=== PATIENT | female | born 1960 | race Caucasian/White ===

== ENCOUNTER 2018-06-17 15:25 | Outpatient (REF) | payer BC, SELFPAY ==
[2018-06-17 22:20] LABS: Cholesterol 259 mg/dL (50-200); HDL Cholesterol 87 mg/dL (40-60); LDL CHOLESTEROL 153 mg/dL (<100); Triglyceride 48 mg/dL (30-150); Vitamin B12 416 pg/mL (193-986)
== END 2018-06-17 15:45 ==
LOC: NCHCN 15:25
PROVIDERS: PCP Nurse Practitioner; Visit Provider Nurse Practitioner
DX: E78.5 Hyperlipidemia, unspecified (principal); E53.8 Deficiency of other specified B group vitamins
CPT/HCPCS: 80061; 83721; 82607

== ENCOUNTER 2018-12-17 01:10 | Outpatient (CLI) | payer OTHER, SELFPAY ==
--- NOTE | 2018-12-17 07:57 | DI.MAMMO_ITS ---
SYMPTOM/DIAGNOSIS: SCREENING Z12.31 BILATERAL SCREENING MAMMOGRAM: Mammograms were interpreted according to the usual protocol including computer analysis with CAD system, tomosynthesis and C view imaging. Comparison is made with exams from 2013 through 2018. The breasts are composed of heterogeneously dense fibroglandular tissue, breast density category C. No suspicious masses or suspicious microcalcifications are seen. There has been no significant change. IMPRESSION: Category 1, negative mammogram. Yearly screening mammography is recommended. Breast density category C. SA ASSESSMENT OF FINDINGS: Negative. Category 1. Patient will receive a letter notifying them of these results. Bi-RADS category C. The breasts are heterogeneously dense, which may obscure small masses.
== END 2018-12-17 01:30 ==
PROVIDERS: PCP Nurse Practitioner; Visit Provider Family Medicine
DX: Z12.31 Encounter for screening mammogram for malignant neoplasm of breast (principal)
CPT/HCPCS: 77063; 77067

== ENCOUNTER 2019-09-26 20:32 | Outpatient (REF) | payer OTHER, SELFPAY ==
[2019-09-26 21:11] LABS: Vitamin D 25 Total 31.5 ng/ml (30-100)
[2019-09-26 21:16] LABS: Calculated LDL 188 mg/dL (<100); Cholesterol 283 mg/dL (<200); HDL Cholesterol 88 mg/dL (40-60); TSH (W/Ref FT4) 0.67 uIU/mL (0.36-3.74); Triglyceride 35 mg/dL (<150); Vitamin B12 1716 pg/mL (193-986)
[2019-09-28 11:04] LABS: Hepatitis C Ab w Rflx HCV PCR Negative (Negative)
[2019-09-28 14:15] LABS: HIV-1/2 Ag & Ab Screen Reactive (Negative)
[2019-10-04 16:17] LABS: HIV 1 Ab Diff Negative
[2019-10-04 16:18] LABS: HIV 2 Ab Diff Negative
== END 2019-09-26 20:52 ==
LOC: NCHCN 20:32
PROVIDERS: PCP Nurse Practitioner; Visit Provider Nurse Practitioner Family
DX: Z00.00 Encounter for general adult medical examination without abnormal findings (principal); E04.9 Nontoxic goiter, unspecified; E53.8 Deficiency of other specified B group vitamins; E78.5 Hyperlipidemia, unspecified; M54.9 Dorsalgia, unspecified; M85.80 Other specified disorders of bone density and structure, unspecified site; Z11.4 Encounter for screening for human immunodeficiency virus [HIV]; Z11.59 Encounter for screening for other viral diseases
CPT/HCPCS: 80061; 82306; 86701; 86702; 86803; 87389; 82607; 84443

== ENCOUNTER 2019-12-29 02:07 | Outpatient (CLI) | payer OTHER, SELFPAY ==
--- NOTE | 2019-12-29 | DI.DEXA_ITS ---
EXAM: XR DEXA BONE DENSITY W/WO LIBAN CLINICAL HISTORY: OSTEOPENIA, M85.80 TECHNIQUE: COMPARISON: Comparison examination is 04/01/2017. FINDINGS: Lateral Spine Image: Unremarkable. No compression deformities identified. Left hip: Total T-Score: -1.9. This compares with -1.8 on the prior examination. Total Z-Score: -0.9 T- and Z-scores: Findings consistent with osteopenia and increased fracture risk. Lumbar Spine: Total T-Score: -2.6. This compares with a total T-score of -2.4 on the prior examination. Total Z-Score: -1.2 T- and Z-scores: Findings consistent with osteoporosis and high fracture risk. IMPRESSION: Osteoporosis in the lumbar spine.
--- NOTE | 2019-12-29 15:13 | DI.MAMMO_ITS ---
EXAM: MG MAMMO SCREENING CLINICAL HISTORY: SCREENING,Z12.31,H/O PREVIOUS ABNL TECHNIQUE: Bilateral full field digital CC and MLO mammographic images were obtained with 3D tomosyn thesis and utilizing computer aided detection (CAD). COMPARISON: Available for comparison. FINDINGS: Masses/Architectural Distortion: There is a new partially obscured nodule in the posterior inferior l eft breast on the mediolateral oblique view. Microcalcifications: No suspicious pleomorphic-type are seen. Skin Thickening/Nipple Retraction: None. IMPRESSION: 1. New left breast nodule. 2. Further evaluation should be obtained with a spot MLO view and a left breast ultrasound. BI-RADS Category 0 - Assessment Incomplete: Need additional imaging evaluation Breast Density - Category C - Heterogeneously dense The mammogram demonstrates the patient's breast tissue is dense. Dense breast tissue is very common a nd is not abnormal but dense breast tissue can make it harder to find cancer on a mammogram. Also, de nse breast tissue may increase their breast cancer risk. This [facility] was provided to the patient to raise their awareness. Use this report when you speak wi th the patient about their risks for breast cancer, which includes their family history. At that time , you may recommend for more screening tests (Ultrasound or MRI) as they might be useful based on the ir risk. A negative radiographic report should not delay biopsy if a dominant or clinically suspicious mass is present. Up to ten percent of cancers are not identified on mammography. A negative report may reinforce clinical impression. Adenosis and dense breasts may obscure an underlying neoplasm. False positive reports average 6 to 10%. Patient will receive a letter notifying them of these results.
== END 2019-12-29 02:27 ==
PROVIDERS: PCP Nurse Practitioner Family; Visit Provider Nurse Practitioner Family
DX: Z12.31 Encounter for screening mammogram for malignant neoplasm of breast (principal); N63.20 Unspecified lump in the left breast, unspecified quadrant; R92.2 Inconclusive mammogram; M81.0 Age-related osteoporosis without current pathological fracture
CPT/HCPCS: 77063; 77067; 77080

== ENCOUNTER 2020-01-05 02:50 | Outpatient (CLI) | payer OTHER, SELFPAY ==
--- NOTE | 2020-01-05 | DI.MAMMO_ITS ---
EXAM: MG MAMMO SCREEN CALL BACK UNI CLINICAL HISTORY: F/U ABNL MAMMO,NEW PARTIALLY OBSCURED NODULE POSTERIOR INF LT BREAST TECHNIQUE: Spot compression views including C- View and tomographic imaging were performed. COMPARISON: 2010 through the recent exam 29 December 2019. FINDINGS: No suspicious masses or suspicious microcalcifications are seen. No persistent abnormality is seen on the additional views performed. The findings are consistent wit h overlying fibroglandular tissue. There has been no significant change from prior exams. IMPRESSION: BI-RADS Category 1, Negative Yearly screening mammography is recommended. Breast Density - Category C - Heterogeneously dense
== END 2020-01-05 03:10 ==
PROVIDERS: PCP Nurse Practitioner Family; Visit Provider Nurse Practitioner Family
DX: R92.2 Inconclusive mammogram (principal); R92.8 Other abnormal and inconclusive findings on diagnostic imaging of breast
CPT/HCPCS: 77063; 77067

== ENCOUNTER 2021-03-08 10:54 | Outpatient (CLI) | payer OTHER, SELFPAY ==
--- NOTE | 2021-03-08 09:47 | DI.RAD_ITS ---
Exam(s) XR KNEE RT 3V AP,LAT,EJ EXAM: XR KNEE RT 3V AP,LAT,EJ CLINICAL HISTORY: R knee pain. TECHNIQUE: 2D digital imaging was performed of the right knee. Four views obtained. AP, lateral and PA tunnel views were obtained. COMPARISON: No previous for comparison. FINDINGS: BONES: No acute fracture is present. No bony destructive lesion is seen. There are findings of a prio r ACL repair. JOINTS: The knee is normally aligned. Periarticular spurring is present. There is a small joint eff usion. Chondrocalcinosis is seen in the femoral tibial joint. SOFT TISSUE: Atherosclerosis. IMPRESSION: 1. Degenerative changes of the right knee. 2. Prior ACL repair. DATA REPOSITORY: RADIATION DOSE DELIVERED:
== END 2021-03-08 10:55 | disposition home or self-care (01) ==
LOC: DIORS 10:55
PROVIDERS: PCP Nurse Practitioner Family; Visit Provider Physician Assistant
DX: M25.561 Pain in right knee (principal)
CPT/HCPCS: 73562

== ENCOUNTER 2021-03-11 11:30 | Outpatient (REF) | payer OTHER, SELFPAY ==
--- NOTE | 2021-03-11 09:15 | PAPFT_PTH ---
PATIENT: Rebecca Rob LOC: [facility]#:[id number] AGE/SX: 60/F ROOM: RE03/11/[address]: Carol Zarate : 1960 BED: DIS: 03/11/2021 SPEC #: [id number] RECD: 03/11/21 18:38 STATUS: RICK RERadha #: [id number] WILLIAN: 03/11/21 09:[address]: Carol Zarate DEPT: [facility] Cytology RECD BY: Mila Méndez Tissues: 1 - CX/ENDOCX FOR PAP SMEARS Procedures: PAP THIN PREP/UVM Screening HPV DNA PROBE Comments: [id number]
[2021-03-11 16:09] LABS: Calculated LDL 215 mg/dL (<100); Cholesterol 312 mg/dL (<200); HDL Cholesterol 88 mg/dL (40-60); Triglyceride 47 mg/dL (<150)
[2021-03-11 16:27] LABS: Vitamin D 25 Total 37.8 ng/mL (30-100)
[2021-03-11 16:51] LABS: TSH (W/Ref FT4) 0.86 uIU/mL (0.36-3.74); Vitamin B12 1007 pg/mL (193-986)
== END 2021-03-11 11:31 | disposition home or self-care (01) ==
LOC: NCHCN 11:30
PROVIDERS: PCP Nurse Practitioner Family; Visit Provider Nurse Practitioner Family
DX: E78.5 Hyperlipidemia, unspecified (principal); E04.9 Nontoxic goiter, unspecified; M81.0 Age-related osteoporosis without current pathological fracture; Z00.00 Encounter for general adult medical examination without abnormal findings; E53.8 Deficiency of other specified B group vitamins; Z12.4 Encounter for screening for malignant neoplasm of cervix; Z11.51 Encounter for screening for human papillomavirus (HPV)
CPT/HCPCS: 80061; 82306; 88142; 82607; 84443; 87624

== ENCOUNTER 2021-04-12 00:18 | Outpatient (CLI) | payer OTHER, SELFPAY ==
--- NOTE | 2021-04-12 | DI.US_ITS ---
Exam(s) US THYROID EXAM: US THYROID CLINICAL HISTORY: ENLARGED THYROID,E04.9. TECHNIQUE: Ultrasound thyroid performed using standard protocol. COMPARISON: No exams were available for comparison FINDINGS: ISTHMUS: 2.1 mm RIGHT LOBE: Size: 5 x 1.6 x 1.9 cm Echogenicity: Normal. Vascularity: Normal. Nodules: There is a 2.1 x 1.2 x 1.2 cm mixed cystic and solid nodule in the mid right lobe. There ar e few internal echogenic foci. The solid components are predominantly isoechoic. This would be cons istent with a TIRADS level 3 nodule. LEFT LOBE: Size: 4.1 x 1.2 x 1.4 cm Echogenicity: Normal. Vascularity: Normal. Nodules: There is a 2 x 0.6 x 1.7 cm predominantly solid nodule in the left aspect of the isthmus. S mall cystic areas are seen internally. It is hypoechoic. There are smooth margins and no echogenic foci. This is consistent with a TIRADS level 3 nodule. There is a cystic nodule in the left lobe w ith a single macrocalcification internally. It is anechoic. This is consistent with a TIRADS level 1 nodule. OTHER FINDINGS: None. IMPRESSION: Multinodular thyroid gland as described above. DATA REPOSITORY:
--- NOTE | 2021-04-12 | DI.MAMMO_ITS ---
Exam(s) MAMMO SCREENING EXAM: MAMMO SCREENING CLINICAL HISTORY: SCREENING, PERSONAL H/O BREAST CA TECHNIQUE: Bilateral full field digital CC and MLO mammographic images were obtained with 3D tomosyn thesis and utilizing computer aided detection (CAD). COMPARISON: Available for comparison. FINDINGS: Masses/Architectural Distortion: None seen. Microcalcifications: No suspicious pleomorphic-type are seen. Skin Thickening/Nipple Retraction: None. IMPRESSION: 1. No significant interval change with no specific features of malignancy noted. 2. Unless there is more urgent need, screening mammography is recommended, as per [employer] guidelines. BI-RADS Category 1 - Negative Breast Density - Category C - Heterogeneously dense Breast density category C or D implies that the patient has dense breast tissue. Dense breast tissue is very common and is not abnormal but dense breast tissue can make it harder to find cancer on a ma mmogram. Also, dense breast tissue may increase their breast cancer risk. This information about the result of the mammogram report was provided to the patient to raise their awareness. Use this report when you speak with the patient about their risks for breast cancer, which includes their family hist ory. At that time, you may recommend for more screening tests (Ultrasound or MRI) as they might be us eful based on their risk. A negative radiographic report should not delay biopsy if a dominant or clinically suspicious mass is present. Up to ten percent of cancers are not identified on mammography. A negative report may reinforce clinical impression. Adenosis and dense breasts may obscure an underlying neoplasm. False positive reports average 6 to 10%. Patient will receive a letter notifying them of these results.
== END 2021-04-12 00:38 ==
PROVIDERS: PCP Nurse Practitioner Family; Visit Provider Nurse Practitioner Family
DX: E04.2 Nontoxic multinodular goiter (principal); Z12.31 Encounter for screening mammogram for malignant neoplasm of breast; R92.8 Other abnormal and inconclusive findings on diagnostic imaging of breast; Z85.3 Personal history of malignant neoplasm of breast
CPT/HCPCS: 77063; 77067; 76536

== ENCOUNTER 2021-10-10 13:06 | Outpatient (CLI) | payer OTHER, SELFPAY ==
--- NOTE | 2021-10-10 13:05 | DI.RAD_ITS ---
Exam(s) XR KNEE LT 3V AP,LAT,EJ EXAM: XR KNEE LT 3V AP,LAT,EJ CLINICAL HISTORY: left knee pain. TECHNIQUE: 2D digital imaging was performed. COMPARISON: CR XR KNEE RT 3V AP,LAT,EJ from 03/08/2021 FINDINGS: 3 views No evidence fracture but there is a joint effusion. Moderate degenerative changes are noted in the m edial compartment.. Mild degenerative in the lateral compartment.. Mild degenerative changes evident patellofemoral. IMPRESSION: Degenerative changes. Joint effusion. No fracture. No osseous lesions DATA REPOSITORY: RADIATION DOSE DELIVERED:
== END 2021-10-10 13:07 | disposition home or self-care (01) ==
LOC: DIORS 13:06
PROVIDERS: PCP Nurse Practitioner Family; Referring Provider Nurse Practitioner Family; Visit Provider Physician Assistant
DX: M25.562 Pain in left knee (principal)
CPT/HCPCS: 73562

== ENCOUNTER 2021-10-16 13:28 | Outpatient (REF) | payer OTHER, SELFPAY ==
[2021-10-17 20:56] LABS: Arsenic Concentration w/Reflex 2 mcg/L; Arsenic, 24 Hr, U 7 mcg/24 h (<35); Cadmium, 24 Hr, U <0.5 mcg/24 h (<0.7); Lead, 24 Hr, U <1 mcg/24 h (<2); Mercury, 24 Hr, U <2 mcg/24 h (<2); Total Volume 3100 mL
== END 2021-10-16 13:29 | disposition home or self-care (01) ==
LOC: LBN 13:28
PROVIDERS: PCP Nurse Practitioner Family; Visit Provider Naturopath
DX: E78.5 Hyperlipidemia, unspecified (principal); E04.1 Nontoxic single thyroid nodule; M81.0 Age-related osteoporosis without current pathological fracture; E55.9 Vitamin D deficiency, unspecified; R53.83 Other fatigue
CPT/HCPCS: 82175; 82300; 83655; 83825; 81050

== ENCOUNTER → 2022-02-24 01:08 | Outpatient (CLI) | payer OTHER, SELFPAY ==
--- NOTE | 2022-02-24 07:30 | DI.MRI_ITS ---
Exam(s) MR LOWER JOINT LT WO EXAM: MR LOWER JOINT LT WO CLINICAL HISTORY: PAIN,oa lt knee, m17.12,m70.50,pes anserine bursitis. TECHNIQUE: Multiplanar multisequence MRI was performed. COMPARISON: CR XR KNEE LT 3V AP,LAT,EJ from 10/10/2021 FINDINGS: BONES: Edema in the medial femoral condyle and medial tibial plateau anteriorly. Subcortical trabecu lar microfracture mid medial femoral condyle. Prominent tibial tubercle. JOINTS: A small joint effusion is present. Articular cartilage: Patellofemoral joint: Thinning of the cartilage at the medial patellar facet ex tending nearly down to bone. Medial femoral tibial joint: Cartilage thinning extending down to involving underlying bone. Lateral femoral tibial joint: Articular cartilage is unremarkable. TENDONS: Extensor mechanism: Calcifications in the distal patellar tendon. Thickening distal patellar tendon. Small amount of adjacent edema. Medial retinaculum: Unremarkable. Lateral retinaculum: Unremarkable. Popliteus: Unremarkable. MUSCLES: Unremarkable. MENISCI: The medial meniscus shows a focal defect at the apex of the posterior horn. There is diffus mukesh abnormal signal in the posterior horn and specially the body.. The lateral meniscus is unremarka ble. SOFT TISSUES: No evidence of pes anserine bursitis. LIGAMENTS: Anterior Cruciate: Unremarkable. Posterior Cruciate: Unremarkable. Medial Collateral:Surrounding edema but no visible tear. Lateral Collateral: Unremarkable. OTHER: IMPRESSION: Tear of the body and posterior horn of the medial meniscus. Degenerative changes of the medial femor al tibial joint with cartilage thinning extending down to involving underlying bone. Adjacent small defect of the medial femoral condyle could represent trabecular microfracture. DATA REPOSITORY:
== END ==
PROVIDERS: PCP Nurse Practitioner Family; Visit Provider Student in an Organized Health Care Education/Training Program
DX: M17.12 Unilateral primary osteoarthritis, left knee (principal); S83.242A Other tear of medial meniscus, current injury, left knee, initial encounter; X58.XXXA Exposure to other specified factors, initial encounter
CPT/HCPCS: 73721

== ENCOUNTER 2022-04-11 13:24 | Outpatient (REF) | payer OTHER, SELFPAY ==
[2022-04-11 15:51] LABS: Abs Immature Grans 0.01 10^3/uL (0.0-0.06); Absolute Basophil Count 0.07 10^3/uL (0.0-0.2); Absolute Eosinophil Count 0.35 10^3/uL (0.0-0.7); Absolute Lymphocyte Count 1.76 10^3/uL (1.2-3.4); Absolute Monocyte Count 0.45 10^3/uL (0.1-0.8); Absolute Neutrophil Count 2.32 10^3/uL (1.2-6.7); Basophils % 1.4; Eosinophils % 7.1; HGB 12.6 g/dL (11.2-15.7); Immature Grans % 0.2; Lymphocytes % 35.5; MCH 30.5 pg (27.0-33.0); MCHC 33.2 % (32.0-36.0); MCV 92 fL (80-95); MPV 11.4 fL (8.0-11.0); Monocytes % 9.1; Neutrophils % 46.7; Platelet Count 293 10^3/uL (130-400); RBC 4.13 10^6/uL (3.93-5.22); RDW 12.9 % (11.7-14.6); RDW-SD 43.7 fL; WBC 4.96 10^3/uL (4.4-10.8)
[2022-04-11 15:56] LABS: ESR 9 mm/hr (0-30)
[2022-04-11 16:17] LABS: Iron 76 ug/dL (50-170); Total Iron Binding Capacity 368 ug/dL (250-450); Transferrin Sat 21 % (15-50)
[2022-04-11 16:33] LABS: Vitamin D 25 Total 38.2 ng/mL (30-100)
[2022-04-11 16:38] LABS: Anion Gap 6.8 mmol/L (3-11); BUN 12 mg/dL (7-18); CO2 30.2 mmol/L (21.0-32.0); CREATININE 0.7 mg/dL (0.55-1.02); Calcium 9.2 mg/dL (8.5-10.1); Calculated LDL 174 mg/dL (<100); Chloride 103 mmol/L (98-107); Cholesterol 263 mg/dL (<200); Estimated GFR 97.12 (mL/min/1.73m2); Ferritin 40 ng/mL (8-252); Glucose 104 mg/dL (74-106); HDL Cholesterol 81 mg/dL (40-60); Potassium 4.4 mmol/L (3.5-5.1); Sodium 140 mmol/L (136-145); TSH (W/Ref FT4) 1.02 uIU/mL (0.36-3.74); Triglyceride 43 mg/dL (<150); Vitamin B12 920 pg/mL (193-986)
[2022-04-11 16:46] LABS: C-Reactive Protein 0.11 mg/dL (0.0-0.3)
[2022-04-11 22:16] LABS: Rheumatoid Factor <8.6 IU/mL (<12.0)
[2022-04-14 09:06] LABS: Cyclic Citrullinated Peptide <2.5 U/mL (<5.0)
[2022-04-15 14:20] LABS: ANA Interpretation Negative (Negative)
== END 2022-04-11 13:25 | disposition home or self-care (01) ==
LOC: NCHCN 13:24
PROVIDERS: PCP Nurse Practitioner Family; Visit Provider Nurse Practitioner Family
DX: Z00.00 Encounter for general adult medical examination without abnormal findings (principal); E78.5 Hyperlipidemia, unspecified; R00.2 Palpitations; E04.2 Nontoxic multinodular goiter; M79.604 Pain in right leg; M79.605 Pain in left leg; M81.0 Age-related osteoporosis without current pathological fracture; N95.1 Menopausal and female climacteric states; E53.8 Deficiency of other specified B group vitamins
CPT/HCPCS: 80048; 80061; 82306; 85652; 86200; 82607; 82728; 83540; 83550; 84443; 85025; 86038; 86140; 86431

== ENCOUNTER 2022-05-13 02:22 | Outpatient (CLI) | payer OTHER, SELFPAY ==
--- NOTE | 2022-05-13 | DI.MAMMO_ITS ---
Exam(s) MAMMO SCREENING EXAM: MAMMO SCREENING CLINICAL HISTORY: SCREENING, Z12.39. TECHNIQUE: Bilateral full field digital CC and MLO mammographic images were obtained with 3D tomosyn thesis and utilizing computer aided detection (CAD). COMPARISON: Prior mammograms were reviewed. FINDINGS: There has been no significant change in the appearance and distribution of the fibroglandular tissue. There are no new spiculated masses nor malignant appearing microcalcification groups. There is no significant architectural distortion nor skin thickening-retraction. IMPRESSION: No radiographic evidence of malignancy. BI-RADS Category 1 - Negative Breast Density - Category C - Heterogeneously dense Breast density Category C or D implies that the patient has dense breast tissue. Dense breast tissue can make it harder to find cancer on a mammogram. Dense breast tissue is also associated with an incr eased risk of breast cancer. This information about the result of the mammogram report was provided to the patient to raise their awareness. Use this report when you speak with the patient about their risks for breast cancer, which includes their family history. At that time, you may recommend additional screening tests (Ultrasoun d or MRI) as these tests may add significant information. A negative radiographic report should not delay biopsy if a dominant or clinically suspicious mass is present. Up to ten percent of cancers are not identified on mammography. A negative report may reinforce clinical impression. Adenosis and dense breasts may obscure an underlying neoplasm. False positive reports average 6 to 10%. Patient will receive a letter notifying them of these results.
== END 2022-05-13 02:42 ==
LOC: DI 02:23
PROVIDERS: PCP Nurse Practitioner Family; Visit Provider Nurse Practitioner Family
DX: Z12.31 Encounter for screening mammogram for malignant neoplasm of breast (principal); R92.8 Other abnormal and inconclusive findings on diagnostic imaging of breast
CPT/HCPCS: 77063; 77067

== ENCOUNTER 2022-11-07 10:41 | Outpatient (REF) | payer OTHER, SELFPAY ==
[2022-11-07 15:02] LABS: HCT 41.2 % (36.0-46.0); HGB 13.6 g/dL (11.2-15.7); MCH 30.3 pg (27.0-33.0); MCV 92 fL (80-95); MPV 11.5 fL (8.0-11.0); Platelet Count 300 10^3/uL (130-400); RBC 4.49 10^6/uL (3.93-5.22); RDW 12.7 % (11.7-14.6); RDW-SD 42.6 fL; WBC 5.43 10^3/uL (4.4-10.8)
[2022-11-07 15:16] LABS: C-Reactive Protein 0.13 mg/dL (0.0-0.3)
[2022-11-07 22:07] LABS: Rheumatoid Factor <8.6 IU/mL (<12.0)
[2022-11-12 14:42] LABS: ANA Interpretation Positive (Negative); ANA Titer Pattern 1:160 Homogeneous
== END 2022-11-07 10:42 | disposition home or self-care (01) ==
LOC: NCHCN 10:41
PROVIDERS: PCP Nurse Practitioner Family; Visit Provider Family Medicine
DX: M79.604 Pain in right leg (principal); M79.605 Pain in left leg; Z01.84 Encounter for antibody response examination
CPT/HCPCS: 85027; 86038; 86140; 86431

== ENCOUNTER → 2023-02-11 11:26 | Outpatient (CLI) | payer OTHER, SELFPAY | PROVIDERS: PCP Nurse Practitioner Family; Visit Provider Physician Assistant | DX: M79.672 Pain in left foot (principal); M89.472 Other hypertrophic osteoarthropathy, left ankle and foot; M77.32 Calcaneal spur, left foot | CPT/HCPCS: 73630 ==

== ENCOUNTER → 2023-02-11 16:49 | Outpatient (CLI) | payer OTHER, SELFPAY ==
--- NOTE | 2023-02-11 | DI.RAD_ITS ---
Exam(s) XR FOOT LT COMPLETE EXAM: XR FOOT LT COMPLETE CLINICAL HISTORY: left foot pain, 4th metatarsal distal midshaft pain. TECHNIQUE: 2D digital imaging was performed. COMPARISON: No exams were available for comparison FINDINGS: 3 views No evidence of acute fracture or diastasis of the Lisfranc joint. There is, however, a bony excresce nce off the lateral aspect of the base of the great toe metatarsal at the Lisfranc joint level, proba steve variant of normal. There is no diastasis of this joint. No degenerative subarticular cysts. There are moderate degenerative changes in the metatarsophalangeal joint of the great toe. Mild dege nerative changes in the tarsometatarsal joints. Other articulations appear unremarkable. Tiny infer ior calcaneal spur noted. Tiny calcification noted at the insertion aspect of the Achilles tendon on the posterior calcaneus. IMPRESSION: As above. DATA REPOSITORY: RADIATION DOSE DELIVERED:
== END ==
PROVIDERS: PCP Nurse Practitioner Family; Visit Provider Physician Assistant
DX: M79.672 Pain in left foot (principal)
CPT/HCPCS: 73630

== ENCOUNTER → 2023-03-06 00:43 | Outpatient (CLI) | payer OTHER, SELFPAY ==
--- NOTE | 2023-03-06 | DI.DEXA_ITS ---
Exam(s) XR DEXA BONE DENSITY W/WO LIBAN EXAM: XR DEXA BONE DENSITY W/WO LIBAN CLINICAL HISTORY: OSTEOPENIA,M85.80 TECHNIQUE: COMPARISON: CR XR DEXA BONE DENSITY W/WO LIBAN from 12/29/2019 FINDINGS: Lateral Spine Image: Unremarkable. No compression deformities identified. Left hip: Total T-Score: -2.2. Compares to -1.9 on the prior examination. Total Z-Score: -1.0 T- and Z-scores: Findings are consistent with osteopenia. Lumbar Spine: Total T-Score: -2.8. This compares to -2.6 on the prior examination. Total Z-Score: -1.1 T- and Z-scores: Findings are consistent with osteoporosis. IMPRESSION: Osteoporosis in the lumbar spine.
== END ==
PROVIDERS: PCP Nurse Practitioner Family; Visit Provider Nurse Practitioner Family
DX: Z13.820 Encounter for screening for osteoporosis (principal); M85.80 Other specified disorders of bone density and structure, unspecified site; S92.352A Displaced fracture of fifth metatarsal bone, left foot, initial encounter for closed fracture; X58.XXXA Exposure to other specified factors, initial encounter
CPT/HCPCS: 77080

== ENCOUNTER → 2023-03-06 01:02 | Outpatient (CLI) | payer OTHER, SELFPAY ==
--- NOTE | 2023-03-06 10:14 | DI.RAD_ITS ---
Exam(s) XR FOOT LT COMPLETE EXAM: XR FOOT LT COMPLETE CLINICAL HISTORY: Stress fracture left fourth metatarsal,M84.375a. TECHNIQUE: 2D digital imaging was performed of the left foot. Three images were obtained. AP, obli que and lateral views were obtained. COMPARISON: CR XR FOOT LT COMPLETE from 02/11/2023 FINDINGS: BONES: There is a nondisplaced subacute fracture of the mid shaft of the 3rd metatarsal bone. Callus formation has developed about the fracture. No bony destructive lesion is seen. JOINTS: No dislocation present. Degenerative changes are present in the foot. SOFT TISSUE: Normal. IMPRESSION: Subacute fracture of the 3rd metatarsal bone. DATA REPOSITORY: RADIATION DOSE DELIVERED:
== END ==
PROVIDERS: PCP Nurse Practitioner Family; Visit Provider Podiatrist
DX: S92.334A Nondisplaced fracture of third metatarsal bone, right foot, initial encounter for closed fracture (principal); X58.XXXA Exposure to other specified factors, initial encounter; Z13.820 Encounter for screening for osteoporosis; M81.0 Age-related osteoporosis without current pathological fracture
CPT/HCPCS: 73630

== ENCOUNTER 2023-03-23 03:55 | Outpatient (CLI) | payer OTHER, SELFPAY ==
[2023-03-23 11:45] LABS: ALT 29 U/L (14-59); AST 19 U/L (15-37); Albumin 4.2 g/dL (3.4-5.0); Alkaline Phosphatase 77 U/L (46-116); Anion Gap 10.3 mmol/L (3-11); BUN 19 mg/dL (7-18); Bilirubin, Total 0.6 mg/dL (0.2-1.0); CO2 26.7 mmol/L (21.0-32.0); CREATININE 0.8 mg/dL (0.55-1.02); Calcium 9.4 mg/dL (8.5-10.1); Calculated LDL 199 mg/dL (<100); Chloride 101 mmol/L (98-107); Cholesterol 296 mg/dL (<200); Estimated GFR 82.23 (mL/min/1.73m2); Glucose 91 mg/dL (74-106); HDL Cholesterol 90 mg/dL (40-60); Potassium 4.2 mmol/L (3.5-5.1); Sodium 138 mmol/L (136-145); Total Protein 8.1 g/dL (6.4-8.2); Triglyceride 37 mg/dL (<150)
[2023-03-23 11:46] LABS: FREE T4 0.98 ng/dL (0.76-1.46); Magnesium 2.1 mg/dL (1.8-2.4); TSH 0.84 uIU/mL (0.36-3.74)
[2023-03-23 11:57] LABS: Vitamin D 25 Total 42.6 ng/mL (30-100)
[2023-03-23 17:38] LABS: Thyroperoxidase Antibody <28 U/mL (<=60)
[2023-03-23 17:40] LABS: Thyroglobulin Antibody <15 U/mL (<=60)
[2023-03-23 17:53] LABS: T3, Total 367 ng/dL (97-169)
[2023-03-23 20:51] LABS: Homocysteine 9.3 umol/L (5.0-13.9)
[2023-03-24 11:33] LABS: RNP Ab, IgG <6.0 CU (<20.0); dsDNA Ab, IgG <22.0 IU/mL (<27.0)
[2023-03-24 12:09] LABS: Sm (Smith) Ab, IgG <8.0 CU (<20.0)
[2023-03-24 14:06] LABS: ANA Interpretation Positive (Negative); ANA Titer Pattern 1:80 Speckled
[2023-03-25 13:58] LABS: Apolipoprotein A1, S 198 mg/dL (>=140); Apolipoprotein B, S 131 mg/dL (See Comment); Apolipoprotein B/A 1 ratio 0.7 (See Comment)
[2023-03-26 10:25] LABS: Free Retinol (Vitamin A) 55.7 mcg/dL (32.5-78.0)
[2023-03-26 12:41] LABS: Vitamin K1 0.81 ng/mL (0.10-2.20)
[2023-04-09 11:29] LABS: Misc Referral (MAYO) See Comments
== END 2023-03-23 03:56 | disposition home or self-care (01) ==
LOC: LBO 03:55
PROVIDERS: PCP Nurse Practitioner Family; Visit Provider Naturopath
DX: M81.0 Age-related osteoporosis without current pathological fracture (principal); E04.1 Nontoxic single thyroid nodule; E78.5 Hyperlipidemia, unspecified
CPT/HCPCS: 36415; 80053; 80061; 82172; 82306; 83090; 84681; 83735; 84100; 84439; 84443; 84480; 84481; 84590; 84597; 86038; 86225; 86235; 86376; 86800

== ENCOUNTER 2024-02-02 10:35 | Outpatient (CLI) | payer OTHER, SELFPAY ==
--- NOTE | 2024-02-02 14:49 | DI.RAD_ITS ---
Exam(s) XR LUMBAR SPINE COMPLETE EXAM: XR LUMBAR SPINE COMPLETE CLINICAL HISTORY: Rt leg pain, pain in rt lower limb, M79.604. TECHNIQUE: 2D digital imaging was performed. COMPARISON: CR XR DEXA BONE DENSITY W/WO LIBAN from 03/06/2023 FINDINGS: Five views No evidence of fracture. There is 1 cm anterior listhesis of L4 upon L5 related to facet arthropathy . There are no pars defects. There is moderate disc space narrowing at this level. Other disc spac es exhibit preserved height. No pars defects nor listhesis at L5 upon S1. Minimal scoliosis convex right. No osseous lesions. Sacroiliac joints appear age-appropriate. IMPRESSION: Main finding here is degenerative anterolisthesis of L4 upon L5 related to facet arthropathy. There is also moderate disc space narrowing at this level noted. DATA REPOSITORY: RADIATION DOSE DELIVERED:
== END 2024-02-02 10:55 ==
LOC: DI 10:36
PROVIDERS: PCP Nurse Practitioner Family; Visit Provider Nurse Practitioner Family
DX: M51.361 Other intervertebral disc degeneration, lumbar region with lower extremity pain only (principal)
CPT/HCPCS: 72110

== ENCOUNTER 2024-09-02 13:41 | Outpatient (REF) | payer OTHER, SELFPAY ==
--- NOTE | 2024-09-02 09:00 | PAPFT_PTH ---
PATIENT: Rebecca Rob LOC: [facility]#:[id number] AGE/SX: 63/F ROOM: RE09/02/[address]: Carol Zarate : 1960 BED: DIS: 09/02/2024 SPEC #: [id number] RECD: 09/02/24 17:25 STATUS: RICK LEONARDO #: [id number] WILLIAN: 09/02/24 09:[address]: Carol Zarate DEPT: [facility] Cytology RECD BY: Mila Méndez Tissues: 1 - CX/ENDOCX FOR PAP SMEARS Procedures: PAP THIN PREP/UVM Screening HPV DNA PROBE Comments: [id number] (HPV 16 & 18/45)
[2024-09-02 15:17] LABS: ALT 36 U/L (14-59); AST 21 U/L (15-37); Alkaline Phosphatase 79 U/L (46-116); BUN 14 mg/dL (7-18); Bilirubin, Total 0.4 mg/dL (0.2-1.0); CREATININE 0.6 mg/dL (0.55-1.02); Calcium 9.1 mg/dL (8.5-10.1); Calculated LDL 207 mg/dL (<100); Chloride 104 mmol/L (98-107); Cholesterol 297 mg/dL (<200); Estimated GFR 99.55 (mL/min/1.73m2); Glucose 103 mg/dL (74-106); HDL Cholesterol 82 mg/dL (>or=50); Potassium 4.7 mmol/L (3.5-5.1); Sodium 140 mmol/L (136-145); Total Protein 7.1 g/dL (6.4-8.2); Triglyceride 42 mg/dL (<150); Vitamin B12 1119 pg/mL (193-986); Vitamin D 25 Total 73 ng/mL (30-100)
== END 2024-09-02 13:42 | disposition home or self-care (01) ==
LOC: NCHCN 13:41
PROVIDERS: PCP Nurse Practitioner Family; Visit Provider Nurse Practitioner Family
DX: Z11.51 Encounter for screening for human papillomavirus (HPV) (principal); Z01.419 Encounter for gynecological examination (general) (routine) without abnormal findings; Z00.00 Encounter for general adult medical examination without abnormal findings; M81.0 Age-related osteoporosis without current pathological fracture; E53.9 Vitamin B deficiency, unspecified; E78.5 Hyperlipidemia, unspecified
CPT/HCPCS: 80053; 80061; 82306; 88142; 82607; 87624

== ENCOUNTER 2024-10-10 02:41 | Outpatient (CLI) | payer OTHER, SELFPAY ==
--- NOTE | 2024-10-10 | DI.MAMMO_ITS ---
Exam(s) MAMMO SCREENING EXAM: MAMMO SCREENING CLINICAL HISTORY: Screening, Z12.31. TECHNIQUE: Bilateral full field digital CC and MLO mammographic images were obtained with 3D tomosynthesis and utilizing computer aided detection (CAD). COMPARISON: Prior mammograms were reviewed. FINDINGS: There has been no significant change in the appearance and distribution of the fibroglandular tissue. There are no new spiculated masses nor malignant appearing microcalcification groups. There is no significant architectural distortion nor skin thickening-retraction. IMPRESSION: No radiographic evidence of malignancy. BI-RADS Category 1 - Negative Breast Density - Category B - There are scattered areas of fibroglandular density. Breast density Category C or D implies that the patient has dense breast tissue. Dense breast tissue can make it harder to find cancer on a mammogram. Dense breast tissue is also associated with an increased risk of breast cancer. This information about the result of the mammogram report was provided to the patient to raise their awareness. Use this report when you speak with the patient about their risks for breast cancer, which includes their family history. At that time, you may recommend additional screening tests (Ultrasound or MRI) as these tests may add significant information. A negative radiographic report should not delay biopsy if a dominant or clinically suspicious mass is present. Up to ten percent of cancers are not identified on mammography. A negative report may reinforce clinical impression. Adenosis and dense breasts may obscure an underlying neoplasm. False positive reports average 6 to 10%. Patient will receive a letter notifying them of these results.
== END 2024-10-10 03:01 ==
LOC: DI 02:41
PROVIDERS: PCP Nurse Practitioner Family; Visit Provider Nurse Practitioner Family
DX: Z12.31 Encounter for screening mammogram for malignant neoplasm of breast (principal); R92.323 Mammographic fibroglandular density, bilateral breasts
CPT/HCPCS: 77063; 77067

== ENCOUNTER 2025-02-27 10:43 | Outpatient (REF) | payer OTHER, SELFPAY ==
[2025-02-27 15:37] LABS: ESR 8 mm/hr (0-30)
[2025-02-27 16:21] LABS: TSH (W/Ref FT4) 0.82 uIU/mL (0.55-4.78)
[2025-02-27 16:29] LABS: C-Reactive Protein < 0.50 mg/dL (<=0.50)
[2025-02-27 16:31] LABS: ALT 27 U/L (10-49); AST 26 U/L (<34); Albumin 4.4 g/dL (3.4-5.0); Alkaline Phosphatase 73 U/L (46-116); Anion Gap 7.6 mmol/L (3-11); BUN 16 mg/dL (9-23); Bilirubin, Total 0.50 mg/dL (0.2-1.2); CO2 27.4 mmol/L (20.0-31.0); Calcium 9.2 mg/dL (8.3-10.6); Chloride 105 mmol/L (98-107); Cholesterol 281 mg/dL (<200); Glucose 111 mg/dL (74-106); HDL Cholesterol 87 mg/dL (>40); Potassium 4.3 mmol/L (3.5-5.1); Sodium 140 mmol/L (136-145); Total Protein 7.0 g/dL (5.7-8.2)
[2025-02-27 17:26] LABS: Hemoglobin A1C 5.5 % (<5.7)
[2025-02-27 22:45] LABS: T3,Free 4.3 pg/mL (2.8-5.3)
== END 2025-02-27 10:44 | disposition home or self-care (01) ==
LOC: NCHCN 10:43
PROVIDERS: PCP Nurse Practitioner Family; Visit Provider Nurse Practitioner Family
DX: E78.5 Hyperlipidemia, unspecified (principal); E04.2 Nontoxic multinodular goiter; M25.50 Pain in unspecified joint; Z13.1 Encounter for screening for diabetes mellitus
CPT/HCPCS: 80053; 80061; 85652; 86200; 83036; 84443; 84481; 86038; 86140; 86431

== ENCOUNTER 2025-04-05 02:53 | Outpatient (CLI) | payer OTHER, SELFPAY ==
[2025-04-08 15:10] LABS: Apolipoprotein A1, S 196 mg/dL (>=140); Apolipoprotein B, S 145 mg/dL (See Comment); Apolipoprotein B/A 1 ratio 0.7 (See Comment)
== END 2025-04-05 02:54 | disposition home or self-care (01) ==
LOC: LBO 02:53
PROVIDERS: PCP Nurse Practitioner Family; Visit Provider Nurse Practitioner Family
DX: E78.5 Hyperlipidemia, unspecified (principal)
CPT/HCPCS: 36415; 82172; 83695